=== PATIENT | male | born 1990 | race Caucasian/White ===

== ENCOUNTER 2017-05-23 17:27 | Emergency (ER) | payer MEDICAID ==
[~2017-05-23] VITALS: Ht 180.3 cm; Wt 100.0 kg
[2017-05-23] MEDS ORDERED: KETOROLAC 60MG/2ML VIAL IM ONE (18:30)
[2017-05-23 18:50] VITALS: BP 121/97
== END 2017-05-23 19:25 | disposition home or self-care (01) ==
LOC: ER 17:27
DX: M79.605 Pain in left leg (principal); M79.604 Pain in right leg
CPT/HCPCS: 82962; 96372; 99283; J1885

== ENCOUNTER 2017-05-24 17:24 | Emergency (ER) | payer MEDICAID ==
[~2017-05-24] VITALS: Ht 180.3 cm; Wt 100.0 kg
[2017-05-24 17:54] VITALS: BP 141/86
[2017-05-24] MEDS ORDERED: LORAZEPAM 1MG TABLET PO ONE (18:30)
== END 2017-05-24 19:18 | disposition home or self-care (01) ==
LOC: ER 17:24
DX: F41.0 Panic disorder [episodic paroxysmal anxiety] (principal)
CPT/HCPCS: 99284

== ENCOUNTER 2020-10-27 10:32 | Emergency (ER) | payer SELFPAY ==
[~2020-10-27] VITALS: Ht 175.3 cm; Wt 100.0 kg
[2020-10-27] MEDS ORDERED: LORAZEPAM 1MG TABLET PO ONE (12:15)
[2020-10-27 12:29] VITALS: BP 145/98
== END 2020-10-27 12:31 | disposition home or self-care (01) ==
LOC: ER 10:42
DX: F41.0 Panic disorder [episodic paroxysmal anxiety] (principal); Z76.0 Encounter for issue of repeat prescription
CPT/HCPCS: 93005; 99283

== ENCOUNTER 2020-10-31 10:43 | Emergency (ER) | payer SELFPAY ==
[~2020-10-31] VITALS: Ht 180.3 cm; Wt 100.0 kg
[2020-10-31 10:51] VITALS: BP 138/88
[2020-10-31] MEDS ORDERED: CLON2TAB PO (10:56)
== END 2020-10-31 12:22 | disposition home or self-care (01) ==
LOC: ER 10:43
DX: F41.9 Anxiety disorder, unspecified (principal); F32.9 Major depressive disorder, single episode, unspecified
CPT/HCPCS: 99281

== ENCOUNTER 2020-10-31 18:55 | Emergency (ER) | payer SELFPAY ==
[~2020-10-31] VITALS: Ht 180.3 cm; Wt 105.0 kg
[~2020-10-31 18:55] MED LIST: CLON2TAB PO
[2020-10-31] MEDS ORDERED: LORAZEPAM 1MG TABLET PO ONE (19:45)
[2020-10-31 20:11] VITALS: BP 121/88
== END 2020-10-31 20:12 | disposition home or self-care (01) ==
LOC: ER 18:55
DX: F41.9 Anxiety disorder, unspecified (principal); F32.9 Major depressive disorder, single episode, unspecified; F17.290 Nicotine dependence, other tobacco product, uncomplicated
CPT/HCPCS: 99283

== ENCOUNTER 2020-12-13 15:11 | Emergency (ER) | payer SELFPAY ==
[~2020-12-13] VITALS: Ht 180.3 cm; Wt 104.0 kg
[2020-12-13] MEDS ORDERED: CHLO5CAP3 MT (15:38)
[2020-12-13 15:51] VITALS: BP 118/79
[2020-12-14] MEDS ORDERED: CLON1TAB23 PO (08:46)
[2020-12-14] MEDS ORDERED: CLON0.5T4 MT (09:32)
== END 2020-12-13 15:52 | disposition home or self-care (01) ==
LOC: ER 15:11
DX: F41.9 Anxiety disorder, unspecified (principal); Z76.0 Encounter for issue of repeat prescription; G40.909 Epilepsy, unspecified, not intractable, without status epilepticus; F32.9 Major depressive disorder, single episode, unspecified
CPT/HCPCS: 99282

== ENCOUNTER 2020-12-14 07:47 | Emergency (ER) | payer SELFPAY ==
[~2020-12-14] VITALS: Ht 180.3 cm; Wt 106.0 kg
[~2020-12-14 07:47] MED LIST changes: +CHLO5CAP3 MT
[2020-12-14] MEDS ORDERED: CLON1TAB23 PO (08:46)
[2020-12-14] MEDS ORDERED: CLON0.5T4 MT (09:32)
[2020-12-14 09:52] VITALS: BP 134/81
== END 2020-12-14 09:53 | disposition home or self-care (01) ==
LOC: ER 08:11
DX: F41.9 Anxiety disorder, unspecified (principal); F32.9 Major depressive disorder, single episode, unspecified; Z79.899 Other long term (current) drug therapy
CPT/HCPCS: 93005; 99283

== ENCOUNTER 2021-01-09 02:51 | Emergency (ER) | payer SELFPAY ==
[~2021-01-09] VITALS: Ht 180.3 cm; Wt 103.0 kg
[~2021-01-09 02:51] MED LIST changes: +CLON0.5T4 MT
[2021-01-09] MEDS ORDERED: CLONAZEPAM 1MG TABLET PO ONE (03:30)
[2021-01-09 03:53] VITALS: BP 106/78
== END 2021-01-09 03:54 | disposition home or self-care (01) ==
LOC: ER 02:51
DX: F41.9 Anxiety disorder, unspecified (principal); Z79.899 Other long term (current) drug therapy
CPT/HCPCS: 99283

== ENCOUNTER 2021-07-05 21:02 | Emergency (ER) | payer SELFPAY ==
[~2021-07-05] VITALS: Ht 175.3 cm; Wt 113.0 kg
[~2021-07-05 21:02] MED LIST changes: +CLON1TAB23 PO
[2021-07-05] MEDS ORDERED: CLON1TAB23 PO (22:09)
[2021-07-05] MEDS ORDERED: CLON0.5T4 MT (22:09)
[2021-07-05] MEDS ORDERED: LORAZEPAM 0.5MG TABLET PO ONE (22:15)
[2021-07-05 22:19] VITALS: BP 128/78
== END 2021-07-05 22:22 | disposition home or self-care (01) ==
LOC: ER 21:02
DX: F41.9 Anxiety disorder, unspecified (principal); Z79.899 Other long term (current) drug therapy
CPT/HCPCS: 99283

== ENCOUNTER 2021-07-09 18:27 | Emergency (ER) | payer SELFPAY ==
[~2021-07-09] VITALS: Ht 182.9 cm; Wt 109.0 kg
[~2021-07-09 18:27] MED LIST changes: -CLON1TAB23 PO
[2021-07-09 19:32] VITALS: BP 126/81
[2021-07-10] MEDS ORDERED: LORA-250 PO (11:36)
== END 2021-07-09 19:33 | disposition home or self-care (01) ==
LOC: ER 18:27
DX: F41.1 Generalized anxiety disorder (principal)
CPT/HCPCS: 99283

== ENCOUNTER 2021-07-10 09:13 | Emergency (ER) | payer SELFPAY ==
[~2021-07-10] VITALS: Ht 185.4 cm; Wt 110.0 kg
[2021-07-10] MEDS ORDERED: LORAZEPAM 1MG TABLET PO NR (11:30)
[2021-07-10] MEDS ORDERED: LORA-250 PO (11:36)
[2021-07-10 11:49] VITALS: BP 122/74
== END 2021-07-10 11:51 | disposition home or self-care (01) ==
LOC: ER 09:13
DX: F41.1 Generalized anxiety disorder (principal)
CPT/HCPCS: 99283

== ENCOUNTER 2021-07-15 23:02 | Emergency (ER) | payer SELFPAY ==
[~2021-07-15] VITALS: Ht 185.4 cm; Wt 114.0 kg
[~2021-07-15 23:02] MED LIST changes: +LORA-250 PO
[2021-07-15 23:45] VITALS: BP 140/105
[2021-07-16] MEDS ORDERED: LORA-250 PO ×3 (00:42→00:50)
[2021-07-16] MEDS ORDERED: LORAZEPAM 1MG TABLET PO SCH (00:45)
== END 2021-07-16 00:53 | disposition home or self-care (01) ==
LOC: ER 23:02
DX: F41.1 Generalized anxiety disorder (principal)
CPT/HCPCS: 99283

== ENCOUNTER 2021-08-18 19:54 | Emergency (ER) | payer MEDICAID ==
[~2021-08-18] VITALS: Ht 172.7 cm; Wt 98.0 kg
[2021-08-18 22:30] VITALS: BP 124/89
== END 2021-08-18 22:46 | disposition home or self-care (01) ==
LOC: ER 19:54
DX: F41.9 Anxiety disorder, unspecified (principal)
CPT/HCPCS: 99283